=== PATIENT | male | born 1940 | race Caucasian/White ===

== ENCOUNTER → 2018-06-26 | Outpatient (CLI) | payer OTHER ==
[~2018-06-26] VITALS: Ht 162.6 cm; Wt 75.3 kg
[~2018-06-26] MED LIST: CENTRUM SILVER1 EAC4 PO; CINNAMON500 MG PO; V-R WOMEN'S CO1 EACH PO; VITAMINC500 PO
[2018-06-26 10:15] VITALS: BP 135/66
[2018-06-26 13:23] LABS: ABSOLUTE NEUTROPHILS 5.1 thou/uL (1.4-8.2); BASOPHILS 0.8 % (0.0-2.0); EOSINOPHILS 3.1 % (0.0-3.0); HEMATOCRIT 42.9 % (42.0-52.0); HEMOGLOBIN 14.5 gm/dL (14.0-18.0); MCHC 33.9 g/dL (28.0-37.0); MCV 91.6 fL (80.0-100.0); MONOCYTES 8.6 % (1.0-8.0); PLATELET COUNT 280 thou/uL (150-400); POLYS 68.5 % (36.0-66.0); RBC 4.68 mil/uL (4.50-6.00); RDW 13.3 % (10.5-14.5); WBC 7.4 thou/uL (4.0-11.0)
[2018-06-26 13:24] LABS: URINE BILIRUBIN NEGATIVE (Negative); URINE BLOOD NEGATIVE (Negative); URINE CLARITY CLEAR; URINE COLOR YELLOW; URINE GLUCOSE-RANDOM* NEGATIVE (Negative); URINE KETONES TRACE (Negative); URINE LEUKOCYTES NEGATIVE (Negative); URINE NITRITE NEGATIVE (Negative); URINE PROTEIN (DIPSTICK) NEGATIVE (Negative); URINE SPECIFIC GRAVITY 1.025 (1.005-1.035); URINE UROBILINOGEN 0.2 E.U./dl (0.2-1.0)
[2018-06-26 13:33] LABS: ALBUMIN 3.9 g/dL (3.4-5.0); ANION GAP 10 mmol/L (7-16); BUN 16 mg/dL (7-18); CALCIUM 9.2 mg/dL (8.5-10.1); CHLORIDE 103 mmol/L (98-107); CHOLESTEROL 188 mg/dL (<200); CO2 27 mmol/L (21-32); CREATININE 0.8 mg/dL (0.7-1.3); GLUCOSE 110 mg/dL (74-106); HDL CHOLESTEROL 40 mg/dL (>40); LDL CHOLESTEROL 131 mg/dL (<100); SGOT 21 U/L (15-37); SGPT 28 U/L (30-65); SODIUM 140 mmol/L (136-145); TC:HDL 4.7 Ratio (Not establshd); TOTAL BILIRUBIN 0.5 mg/dL (<0.1-1.0); TOTAL PROTEIN 7.2 g/dL (6.4-8.2); TRIGLYCERIDE 85 mg/dL (<150); VLDL 17 mg/dL (<40)
[2018-06-26 14:01] LABS: TSH 2.775 uIU/mL (0.358-3.740)
[2018-06-27 03:06] LABS: GLYCOHEMOGLOBIN (HGB A1C) 5.3 % (4.8-5.6)
== END ==
LOC: SEN 09:02
PROVIDERS: Nurse Practitioner Family
DX: Z09 Encounter for follow-up examination after completed treatment for conditions other than malignant neoplasm (principal); C44.90 Unspecified malignant neoplasm of skin, unspecified; R53.83 Other fatigue; E78.5 Hyperlipidemia, unspecified; R73.09 Other abnormal glucose

== ENCOUNTER → 2018-07-26 | Outpatient (CLI) | payer OTHER | LOC: RAD 11:40 | DX: M25.511 Pain in right shoulder (principal); R20.0 Anesthesia of skin ==

== ENCOUNTER → 2018-07-31 | Outpatient (CLI) | payer OTHER ==
[2018-07-31 09:24] VITALS: BP 143/74
== END ==
LOC: RAD 08:14 → SEN 08:14
DX: M50.323 Other cervical disc degeneration at C6-C7 level (principal); M48.02 Spinal stenosis, cervical region; J32.9 Chronic sinusitis, unspecified; M12.88 Other specific arthropathies, not elsewhere classified, other specified site; R20.0 Anesthesia of skin

== ENCOUNTER 2018-09-07 05:23 | Day surgery (SDC) | payer OTHER ==
[~2018-09-07] VITALS: Ht 165.1 cm; Wt 70.3 kg
--- NOTE | ~2018-09-07 | O ---
[facility] [place] [address] OPERATIVE REPORT Name: HANSEL AN Room #: DEP [facility].#: [id number] Admission: 09/07/18 Attend Phys: Fausto Deras MD Discharge: 09/07/18 Date of : 40 Report #: [id number] THIS REPORT FOR: //name// CC: Anahy Deras DATE OF SERVICE: 09/07/2018 PREOPERATIVE DIAGNOSES: Deviated nasal septum, turbinate congestion hypertrophy. POSTOPERATIVE DIAGNOSES: Deviated nasal septum, turbinate congestion hypertrophy. PROCEDURE: Nasal septal reconstruction, inferior turbinate, submucous resection and outfracturing. SURGEON: Fausto Deras M.D. ANESTHESIA: General oral endotracheal. INDICATIONS: See H and P. FINDINGS: As noted preoperatively, large deviation of the quadrangular cartilage to the right side well off the maxillary crest with a bony reaction of maxillary crest on the left side. This deviation continued back into the anterior portion of vomer and perpendicular plate, a left greater than right turbinate hypertrophy was observed. TECHNIQUE: After obtaining consent, he was brought to the operating suite. Appropriate timeout was performed. General anesthesia was obtained. The bed was turned 90 degrees. Nose was prepped and draped in usual sterile fashion. A 6 mL of 1% Xylocaine 1:100,000 epinephrine was injected in each side of the nasal septum. Later in the case, an additional 2 mL was injected submucosally in each inferior turbinate, care was made not to inject intravascularly. Right-sided hemitransfixion incision was made with elevation of mucosal flap off the quadrangular cartilage, anterior portion of vomer and perpendicular plate on the left side. It was noted during elevation that there was a bit of a notching in the inferior portion of the quadrangular cartilage that required meticulous dissection. I then harvested a large somewhat rectangular piece of quadrangular cartilage, leaving enough anteriorly and superiorly for tip support. The bony cartilaginous junction was disarticulated. Mucosal flap was elevated on the right side to further expose the vomer and perpendicular plate. Using a combination of Liliana forceps, Le punches and scissors, I removed the remainder of the deviation of the superior portion of quadrangular [address] [address] OPERATIVE REPORT Name: HANSEL AN Room #: DEP [facility].#: [id number] Admission: 09/07/18 Attend Phys: Fausto Deras MD Discharge: 09/07/18 Date of : 40 Report #: [id number] cartilage and the vomer and perpendicular plate. I then made a small incision on the left inferior portion of the septal flaps for postop drainage purposes. Having addressed the septum adequately, previously harvested cartilage that was found to be adequately straight was trimmed, morcellized, placed back between the septal folds. The hemitransfixion incision was closed with simple interrupted 4-0 chromic suture. I then called to the inferior edges well to help stabilize the inferior swinging door edge of the septum. Each inferior turbinate was then addressed by making a small stab incision with the caudal elevator and elevating mucosal flap on the medial surface. Submucous resection blade 2.0 mm was used to submucosally reduce the turbinate. Each turbinate was then outfractured with a Flathead elevator. Simple splints were placed inside the septum, secured with 3-0 Prolene suture and a Merogel was placed in each side between the turbinate and the septum. He returned back to anesthesia where he was allowed to awake from anesthesia and taken to recovery room in a stable condition. ESTIMATED BLOOD LOSS: 10 mL. By: [id number] Fausto Deras MD /greg
[~2018-09-07 05:23] MED LIST changes: +ALEVE220 MG PO; +CINNAMON PLUS1 EACH PO; +VITAMIN C1000 MG PO
[2018-09-07 09:43] VITALS: BP 141/70
[2018-09-07 11:54] VITALS: BP 141/70
[2018-09-07 18:22] VITALS: BP 142/75
[2018-09-07 19:53] VITALS: BP 136/73
[2018-09-08 04:02] VITALS: BP 118/62
[2018-09-08 08:14] VITALS: BP 114/70
[2018-09-08 12:24] VITALS: BP 141/70
== END 2018-09-08 12:55 | disposition home or self-care (01) ==
LOC: OR 05:23 → TBA 05:24 → OR 11:17 → TBA 12:40 → OR 12:40 → 4E 16:56 → OR 09-08 12:55
DX: J34.2 Deviated nasal septum (principal); J34.3 Hypertrophy of nasal turbinates; M19.90 Unspecified osteoarthritis, unspecified site; Z79.899 Other long term (current) drug therapy; Z85.828 Personal history of other malignant neoplasm of skin; Z98.890 Other specified postprocedural states; Z90.49 Acquired absence of other specified parts of digestive tract
CPT/HCPCS: 50010; 50101; 50386; 50398; 51316; 51634; 53635; 56526; 56528; 62110; 62900; 64037; 70005